=== PATIENT | female | born 1965 | race Hispanic/Latino ===

== ENCOUNTER 2022-08-30 09:45 | Emergency (ER) | payer BC ==
[~2022-08-30] VITALS: Ht 142.2 cm; Wt 93.0 kg
[2022-08-30] MEDS ORDERED: KETOROLAC TROMETHAMINE 60 MG/2 ML VIAL IM ONE (11:15)
[2022-08-31] MEDS ORDERED: CEFDINIR300 MG PO (15:39)
[2022-08-31] MEDS ORDERED: PREDNISONE20 MG PO (15:39)
[2022-08-31] MEDS ORDERED: ULTRAM 50MG50 MG PO (15:39)
== END 2022-08-30 12:08 | disposition home or self-care (01) ==
LOC: ER 09:51
DX: R07.89 Other chest pain (principal); K21.9 Gastro-esophageal reflux disease without esophagitis
CPT/HCPCS: 71101; 99283; J1885

== ENCOUNTER 2022-08-31 12:17 | Emergency (ER) | payer BC ==
[~2022-08-31] VITALS: Ht 142.2 cm; Wt 93.0 kg
[2022-08-31] MEDS ORDERED: KETOROLAC TROMETHAMINE 30 MG/ML VIAL IV STA (12:26)
[2022-08-31] MEDS ORDERED: Morphine 4mg INJECTION 4 MG/ML INJ IV STA (12:26)
[2022-08-31] MEDS ORDERED: SODIUM CHLORIDE 0.9% 1000ML 1,000 ML IV STA (12:26)
[2022-08-31] MEDS ORDERED: ONDANSETRON HCL INJ 2MG/ML 2ML 2 MG/ML VIAL IV STA (12:26)
[2022-08-31 12:51] LABS: BASOPHILS % 0.3 % (0.0-1.0); EOSINOPHILS # (AUTO) 0.1 (0.0-0.4); EOSINOPHILS % 0.7 % (0.0-6.0); HEMATOCRIT 39.1 % (34.2-44.1); HEMOGLOBIN 12.5 g/dL (12.0-16.0); LYMPHOCYTES # (AUTO) 4.9 (1.0-3.2); LYMPHOCYTES % 32.5 % (18.0-39.1); MEAN CORPUSCULAR HEMOGLOBIN 30.3 pg (28-32); MEAN CORPUSCULAR VOLUME 94.7 fL (81-99); MONOCYTES % 6.3 % (4.4-11.3); NEUTROPHILS % 59.7 % (38.7-80.0); PLATELET COUNT 500 x10e3/uL (140-360); RED BLOOD COUNT 4.13 x10e6/uL (3.6-5.1); RED CELL DISTRIBUTION WIDTH 13.8 % (11.7-14.4)
[2022-08-31 13:09] LABS: ALBUMIN 3.6 g/dL (3.5-5.0); ANION GAP 13.1 mmol/L (8-16); CALCIUM 9.4 mg/dL (8.4-10.2); CREATININE, SERUM 0.57 mg/dL (0.57-1.11); POTASSIUM 4.1 mmol/L (3.5-5.1)
[2022-08-31 13:17] LABS: CLARITY,URINE SL CLOUDY (CLEAR); COLOR,URINE YELLOW (YELLOW)
[2022-08-31 13:18] LABS: BACTERIA,URINE MODERATE /HPF; EPITHELIAL CELLS,URINE MODERATE /LPF; KETONES,URINE NEGATIVE (NEGATIVE); LEUKOCYTE ESTERASE ,URINE NEGATIVE (NEGATIVE); NITRITE,URINE NEGATIVE (NEGATIVE); PROTEIN,URINE DIPSTICK NEGATIVE (NEGATIVE); RBC,URINE 0-5 /HPF (0-5); URINE UROBILINOGEN 0.2 mg/dL (0.2 - 1)
[2022-08-31] MEDS ORDERED: METHYLPREDNISOLONE SOD SUCC 125 MG/2ML VIAL IV STA (15:19)
[2022-08-31] MEDS ORDERED: ULTRAM 50MG50 MG PO (15:39)
[2022-08-31] MEDS ORDERED: PREDNISONE20 MG PO (15:39)
[2022-08-31] MEDS ORDERED: CEFDINIR300 MG PO (15:39)
[2022-08-31 16:27] VITALS: BP 124/84
== END 2022-08-31 16:25 | disposition home or self-care (01) ==
LOC: ER 12:22
DX: R07.89 Other chest pain (principal); K65.4 Sclerosing mesenteritis; N39.0 Urinary tract infection, site not specified; K21.9 Gastro-esophageal reflux disease without esophagitis
CPT/HCPCS: 36415; 74177; 76705; 80053; 81001; 83690; 84484; 85025; 87086; 99284; J1885; J2270; J2405; J2930; J7030